=== PATIENT | female | born 1940 | race Caucasian/White ===

== ENCOUNTER 2017-03-17 08:28 | Emergency (ER) | payer MEDICARE ==
[~2017-03-17] VITALS: Ht 162.6 cm; Wt 75.0 kg
[2017-03-17] MEDS ORDERED: VALACYCLOVIR500 MG PO (08:59)
[2017-03-17 09:11] VITALS: BP 138/70
== END 2017-03-17 09:12 | disposition home or self-care (01) ==
LOC: ED 08:28
DX: B02.8 Zoster with other complications (principal); R10.32 Left lower quadrant pain